=== PATIENT | female | born 1965 | race Caucasian/White ===

== ENCOUNTER 2017-10-29 21:51 | Emergency (ER) | payer OTHER ==
[~2017-10-29] VITALS: Ht 170.2 cm; Wt 106.6 kg
[2017-10-29] MEDS ORDERED: GENTAK5 ML INTRAOCULR (23:47)
[2017-10-29] MEDS ORDERED: NORCO 5-325 TA1 EACH PO (23:47)
[2017-10-30 00:20] VITALS: BP 174/86
== END 2017-10-30 00:21 | disposition home or self-care (01) ==
LOC: M.ERS 21:51
DX: S05.92XA Unspecified injury of left eye and orbit, initial encounter (principal); S05.91XA Unspecified injury of right eye and orbit, initial encounter; F17.210 Nicotine dependence, cigarettes, uncomplicated; Z91.040 Latex allergy status; W93.11XA Contact with liquid air, initial encounter; Y93.89 Activity, other specified; Y92.89 Other specified places as the place of occurrence of the external cause; Y99.8 Other external cause status